=== PATIENT | female | born 1940 | race Caucasian/White ===

== ENCOUNTER 2018-09-30 12:54 | Inpatient (IN) | payer MEDICARE, OTHER ==
[~2018-09-30] VITALS: Ht 160 cm; Wt 46.0 kg
--- OUTSIDE RECORDS SUMMARY | ~2018-09-30 | XMS | Encounter Summary ---
Demographics + + + | Address | [address] | | | [place] [address] | + + + | Home Phone | | + + + | Preferred Language | Unknown | + + + | Marital Status | | + + + | Cheondoism Affiliation | 1013 | + + + | Race | Unknown | + + + | Ethnic Group | Unknown | + + + Author + + + | Author | [facility] | | | and [place] | + + + | Organization | [facility] | | | and [place] | + + + | Address | Unknown | + + + | Phone | Unavailable | + + + Support + + + + + | Name | Relationship | Address | Phone | + + + + + | Jesus Dumont | ECON | [address] | | | | | [place] | | | | | [address] | | + + + + + | Valentina Denton | ECON | [address] | | | | | [place] | | + + + + + | Jesus Dumont | NURIS | Unknown | | + + + + + Care Team Providers + +------+ + | Care Plate Shop Helper Name | Role | Phone | + +------+ + | Oscar Nevarez MD | PCP | | + +------+ + Reason for Visit +--------+ + | Reason | Comments | +--------+ + | Other | | +--------+ + Encounter Details +--------+ + + + + | Date | Type | Department | Care Team | Description | +--------+ + + + + | 09/01/ | Telephone | [facility] | Antwan Alegria | Other | | 2019 | | LABORATORY SERVICE | MD Isha, [facility] [address] | | | | | [address] | [facility] | | | | | [place], [place] | [place] [address] | | | | | [address] | [phone] | | | | | [phone] | | | +--------+ + + + + Social History + + + +--------+ + | Tobacco Use | Types | Packs/Day | Years | Date | | | | | Used | | + + + +--------+ + | Former Smoker | Cigarettes | 0.5 | 47 | Quit: 04/22/2004 | + + + +--------+ + + +---+---+---+ | Smokeless Tobacco: | | | | | Never Used | | | | + +---+---+---+ + + +---------+ + | Alcohol Use | Drinks/We | oz/Week | Comments | | | ek | | | + + +---------+ + | Yes | | | Seldom | + + +---------+ + + + + | Sex Assigned at | Date Recorded | | | | + + + | Not on file | | + + + + + + + | Job Start Date | Occupation | Industry | + + + + | Not on file | Not on file | Not on file | + + + + + + + + | Travel History | Travel Start | Travel End | + + + + + + | No recent travel history available. | + + documented as of this encounter Functional Status + + + + | Functional Status | Response | Date of Assessment | + + + + | Are you deaf or do you have serious | No | 08/20/2017 | | difficulty hearing? | | | + + + + documented as of this encounter Plan of Treatment Not on filedocumented as of this encounter Visit Diagnoses Not on filedocumented in this encounter"
--- OUTSIDE RECORDS SUMMARY | ~2018-09-30 | XMS | Clinical Summary ---
Demographics + + + | Address | [address] | | | [place] [address] | + + + | Home Phone | | + + + | Preferred Language | Unknown | + + + | Marital Status | | + + + | Hindu Affiliation | 1013 | + + + | Race | Unknown | + + + | Ethnic Group | Unknown | + + + Author + + + | Author | [facility] | | | and [place] | + + + | Organization | [facility] | | | and [place] [...] [place] | | | | | [address] | | + + + + + | Valentina Denton | ECON | [address] | | | | | [place] | | + + + + + | Jesus Dumont | NURIS | Unknown | | + + + + + Care Team Providers + +------+ + | Care Yarn Mercerizer Operator Name | Role | Phone | + +------+ + | Oscar Nevarez MD | PP | | + +------+ + Allergies No Known Allergies Medications + + + +---------+------+------+-------+ | Medication | Sig | Dispensed | Refills | Star | End | Statu | | | | | | t | Date | s | | | | | | Date | | | + + + +---------+------+------+-------+ | [place]-3 Fatty | Take 1,000 mg by | | 0 | 05/2 | | Activ | | Acids (OMEGA-3 FISH | mouth Daily. | | | 1/20 | | e | | OIL) 1000 MG CAPS | | | | 12 | | | + + + +---------+------+------+-------+ | omeprazole | Take 20 mg by mouth | | 0 | 08/0 | | Activ | | (PRILOSEC) 20 mg | 2 times daily | | | 4/20 | | e | | capsule | (before meals). | | | 13 | | | + + + +---------+------+------+-------+ | metoprolol | Take 50 mg by mouth | | 0 | 11/0 | | Activ | | succinate | nightly. | | | 2/20 | | e | | (TOPROL-XL) 50 mg 24 | | | | 15 | | | | hr tablet | | | | | | | + + + +---------+------+------+-------+ | | Take 25 mg by mouth | | 0 | 01/0 | | Activ | | hydroCHLOROthiazide | Daily. | | | 3/20 | | e | | 25 mg tablet | | | | 18 | | | + + + +---------+------+------+-------+ | lisinopril | Take 40 mg by mouth | | 0 | 01/0 | | Activ | | (PRINIVIL,ZESTRIL) | Daily. | | | 3/20 | | e | | 40 MG tablet | | | | 18 | | | + + + +---------+------+------+-------+ | loratadine | Take 10 mg by mouth | | 0 | | | Activ | | (CLARITIN) 10 mg | Daily. | | | | | e | | tablet | | | | | | | + + + +---------+------+------+-------+ | atorvaSTATin | Take 40 mg by mouth | | 0 | | | Activ | | (LIPITOR) 40 mg | nightly. | | | | | e | | tablet | | | | | | | + + + +---------+------+------+-------+ | felodipine | Take 10 mg by mouth | | 0 | 01/2 | | Activ | | (PLENDIL) 10 MG 24 | Daily. | | | 20 | | e | | hr tablet | | | | 18 | | | + + + +---------+------+------+-------+ | SYNTHROID 100 MCG | Take 100 mcg by | | 0 | 01/2 | | Activ | | tablet | mouth Daily. | | | /20 | | e | | | | | | 18 | | | + + + +---------+------+------+-------+ | metFORMIN | Take 500 mg by mouth | | 0 | 02/0 | | Activ | | (GLUCOPHAGE-XR) 500 | Daily. | | | 7/20 | | e | | mg 24 hr tablet | | | | 18 | | | + + + +---------+------+------+-------+ | ferrous sulfate | Take 160 mg by mouth | | 0 | | | Activ | | dried (SLOW IRON) | daily (with | | | | | e | | 160 mg ER tablet | breakfast). | | | | | | + + + +---------+------+------+-------+ | Ascorbic Acid | Take 125 mg by mouth | | 0 | | | Activ | | (VITAMIN C) 100 MG | 2 times daily. | | | | | e | | tablet | | | | | | | + + + +---------+------+------+-------+ | Calcium | Take 1,200 tablets | | 0 | | | Activ | | Carbonate-Vitamin D | by mouth Daily. | | | | | e | | (CALCIUM 600+D PO) | | | | | | | + + + +---------+------+------+-------+ | ticagrelor | Take 90 mg by mouth | | 0 | | | Activ | | (BRILINTA) 90 mg | 2 times daily. | | | | | e | | tablet | | | | | | | + + + +---------+------+------+-------+ | aspirin 81 MG | Take 81 mg by mouth | | 0 | | | Activ | | tablet | Daily. | | | | | e | + + + +---------+------+------+-------+ Active Problems + + + | Problem | Noted Date | + + + | CAROTID ENDARTECTOMY | 09/24/2011 | + + + | CAROTID ARTERY STENOSIS, BILATERAL | 08/10/2010 | + + + | HYPERLIPIDEMIA | | + + + | HYPERTENSION | | + + + | HYPOTHYROIDISM | | + + + | DIABETES, TYPE 2 | | + + + | CHEST PAIN | | + + + | CAD | | + + + Encounters +--------+ + + + + | Date | Type | Specialty | Care Team | Description | +--------+ + + + + | 09/01/ | Telephone | | Antwan Alegria | Other | | 2019 | | | MD [facility] | | +--------+ + + + + from Last 3 Months Immunizations + + + + | Name | Dates Previously Given | Next Due | + + + + | PNEUMOCOCCAL | 01/20/2017 | | | POLYSACCHARIDE | | | | 23-VALENT (PPSV23) | | | + + + + | TETANUS TOXOID | 01/20/2017 | | | ABSORBED, | | | | (ADOL/ADULT) | | | + + + + Family History + + +------+ + | Medical History | Relation | Name | Comments | + + +------+ + | Atrial fibrillation | Brother | | | + + +------+ + | Hypertension | Brother | | | + + +------+ + | Diabetes | Daughter | | | + + +------+ + | Arrhythmia | Maternal | | | | | Aunt | | | + + +------+ + | Atrial fibrillation | Mother | | | + + +------+ + | Parkinsonism | Mother | | | + + +------+ + | Hypertension | Sister | | | + + +------+ + + +------+ + + | Relation | Name | Status | Comments | + +------+ + + | Brother | | | | + +------+ + + | Daughter | | | | + +------+ + + | Father | | | | + +------+ + + | Maternal Aunt | | | | + +------+ + + | Mother | | | | + +------+ + + | Sister | | | | + +------+ + + Social History + + + [...] recent travel history available. | + + Last Filed Vital Signs + + + + | Vital Sign | Reading | Time Taken | + + + + | Blood Pressure | 146/68 | 09/23/20171046 PDT | + + + + | Pulse | 59 | 09/23/20171046 PDT | + + + + | Temperature | 36.6 C (97.8 F) | 09/23/20171046 PDT | + + + + | Respiratory Rate | 14 | 08/20/2017929 PDT | + + + + | Oxygen Saturation | 99% | 09/23/20171046 PDT | + + + + | Inhaled Oxygen | - | - | | Concentration | | | + + + + | Weight | 56.8 kg (125 lb 3.5 | 09/23/20171046 PDT | | | oz) | | + + + + | Height | 160 cm (5' 3") | 09/23/20171046 PDT | + + + + | Body Mass Index | 22.18 | 09/23/20171046 PDT | + + + + Plan of Treatment + + + + + | Health Maintenance | Due Date | Last Done | Comments | + + + + + | Diabetic Eye Exam | | | | | | 0 | | | + + + + + | Diabetic Foot Exam | | | | | | 0 | | | + + + + + | Vaccine: Zoster (1 | | | | | of 2) | 2 | | | + + + + + | Adult Annual | | | | | Wellness Visit | 5 | | | + + + + + | Hemoglobin A1c | | 03/10/2016 | | | Screening | 7 | | | + + + + + | Vaccine: | | 01/20/2017 | | | Dtap/Tdap/Td (1 - | 7 | | | | Tdap) | | | | + + + + + | Vaccine: | | 01/20/2017 | | | Pneumococcal 65+ | 8 | | | | Low/Medium Risk (2 | | | | | of 2 - PCV13) | | | | + + + + + | Vaccine: Influenza | | | | | (Season Ended) | 9 | | | + + + + + Implants + +-------+--------+ +--------+--------+--------+ | Implanted | Type | Area | Manufacture | Device | Shelf | Model | | | | | r | | Expira | / | | | | | | Identi | tion | Serial | | | | | | fier | Date | / Lot | + +-------+--------+ +--------+--------+--------+ | Visi Pro | Stent | Left: | | | 09/25/ | / | | Stent-08/19/2017Implanted: | | Caroti | | | 2020 | /[id number] | | Qty: 1 on 08/19/2017 by | | d | | | | 82 | | Jamar Slade MD | | | | | | | + +-------+--------+ +--------+--------+--------+ | Acculink | Stent | Left: | | | 04/22/ | / | | Stent-08/19/2017Implanted: | | Caroti | | | 2020 | /[id number] | | Qty: 1 on 08/19/2017 by | | d | | | | 61 | | Jamar Slade MD | | | | | | | + +-------+--------+ +--------+--------+--------+ Results Not on filefrom Last 3 Months Insurance + +--------+ +--------+ +---------+--------+ | Payer | Benefi | Subscriber | Effect | Phone | Address | Type | | | t Plan | ID | sloan | | | | | | / | | Dates | | | | | | Group | | | | | | + +--------+ +--------+ +---------+--------+ | MEDICARE | MEDICA | [id number] | 12/22/19 | [phone] | | Medica | | | RE | | 07-Pre | 5 | | re | | | PART A | | sent | | | | | | AND B | | | | | | + +--------+ +--------+ +---------+--------+ | AETNA | AETNA | [id number] | 04/22/19 | | | PPO | | | PPO | | 18-Pre | | | | | | | | sent | | | | + +--------+ +--------+ +---------+--------+ + +--------+ +--------+ + + | Guarantor Name | Accoun | Relation to | Date | Phone | Billing Address | | | t Type | Patient | of | | | | | | | | | | + +--------+ +--------+ + + | Gillian Dumont | Person | Self [birth year] | [address] | | | al/Fam | | 1940 | [phone] | [place] [address] | | | michelle | | | 5 (Home) | | + +--------+ +--------+ + + Advance Directives Patient has advance care planning documents, and code status on file. For more information, please contact:[facility] [place] [facility] [place] [address] + + + + + | Code Status | Date | Date | Comments | | | Activated | Inactivated | | + + + + + | Full Code | 08/20/2017 | 08/20/2017 | | | | 8:28 | 12:34 | | + + + + +
--- OUTSIDE RECORDS SUMMARY | ~2018-09-30 | XMS | Encounter Summary ---
Demographics + + + | Address | [address] | | | [place] [address] | + + + | Home Phone | | + + + | Preferred Language | Unknown | + + + | Marital Status | | + + + | Bahai Affiliation | Unknown | + + + | Race | Unknown | + + + | Ethnic Group | Unknown | + + + Author + + + | Author | [facility] | + + + | Organization | [facility] | + + + | Address | Unknown | + + + | Phone | Unavailable | + + + Support + + +---------+ + | Name | Relationship | Address | Phone | + + +---------+ + | Jesus Dumont | ECON | Unknown | | + + +---------+ + Care Team Providers + +------+ + | Care Wire Frame Maker Name | Role | Phone | + +------+ + | Oscar Nevarez MD | PCP | | + +------+ + Reason for Visit +--------+ + | Reason | Comments | +--------+ + | Other | STA ct/abdoment/pelvic ct/chest/thorax with contrast | +--------+ + Encounter Details +--------+ + + + + | Date | Type | Department | Care Team | Description | +--------+ + + + + | 08/29/ | Documentati | [facility] | Kat Castro, | Other ([facility] | | 2019 | on Only | [facility] | [place] | ct/abdoment/pelvic | | | | [address] | | ct/chest/thorax with | | | | [place] | | contrast ) | | | | [address] | | | | | | [phone] | | | +--------+ + + + + Social History + +-------+ +--------+ + | Tobacco Use | Types | Packs/Day | Years | Date | | | | | Used | | + +-------+ +--------+ + | Former Smoker | | 0.5 | 47 | Quit: 2002 | + +-------+ +--------+ + + +---+---+---+ | Smokeless Tobacco: | | | | | Never Used | | | | + +---+---+---+ + + +---------+ + | Alcohol Use | Drinks/We | oz/Week | Comments | | | ek | | | + + +---------+ + | Yes | | | seldom | + + +---------+ + + + + | Sex Assigned at | Date Recorded | | | | + + + | Not on file | | + + + as of this encounter Plan of Treatment Not on fileas of this encounter Visit Diagnoses Not on filein this encounter"
--- OUTSIDE RECORDS SUMMARY | ~2018-09-30 | XMS | Clinical Summary ---
Demographics + + + | Address | [address] | | | [place] [address] | + + + | Home Phone | | + + + | Preferred Language | Unknown | + + + | Marital Status | | + + + | Orthodox Affiliation | Unknown | + + + | Race | Unknown | + + + | Ethnic Group | Unknown | + + + Author + + + | Author | [facility] | + + + | Organization | [facility] | + + + | Address | Unknown | + + + | Phone | Unavailable | + + + Support + + +---------+ + | Name | Relationship | Address | Phone | + + +---------+ + | Jesus Dumont | ECON | Unknown | | + + +---------+ + Care Team Providers + +------+ + | Care Tube Coremaker Name | Role | Phone | + +------+ + | Oscar Nevarez MD | PP | | + +------+ + Allergies No Known Allergies Current Medications + + +--------+---------+------+------+-------+ | Prescription | Sig. | Disp. | Refills | Star | End | Statu | | | | | | t | Date | s | | | | | | Date | | | + + +--------+---------+------+------+-------+ | | Take 25 mg by mouth | | | 01/0 | | Activ | | hydrochlorothiazide | daily. | | | 3/20 | | e | | (HYDRODIURIL) 25 MG | | | | 18 | | | | tablet | | | | | | | + + +--------+---------+------+------+-------+ | omeprazole | Take 20 mg by mouth | | 3 | 10/0 | | Activ | | (PRILOSEC) 20 MG | daily. | | | 2/20 | | e | | capsule | | | | 17 | | | + + +--------+---------+------+------+-------+ | metoprolol | Take 50 mg by mouth | | | 11/0 | | Activ | | (TOPROL-XL) 50 MG 24 | daily. | | | 2/20 | | e | | hr tablet | | | | 15 | | | + + +--------+---------+------+------+-------+ | lisinopril | Take 40 mg by mouth | | | 01/0 | | Activ | | (ZESTRIL) 40 MG | daily. | | | 320 | | e | | tablet | | | | 18 | | | + + +--------+---------+------+------+-------+ | felodipine | Take 10 mg by mouth | | | 05/2 | | Activ | | (PLENDIL) 5 MG 24 hr | daily. | | | 20 | | e | | tablet | | | | 12 | | | + + +--------+---------+------+------+-------+ | levothyroxine | Take 100 mcg by | | | | | Activ | | (SYNTHROID) 100 MCG | mouth every morning | | | | | e | | tablet | before breakfast. | | | | | | + + +--------+---------+------+------+-------+ | loratadine | Take 10 mg by mouth | | | | | Activ | | (CLARITIN) 10 MG | daily. | | | | | e | | tablet | | | | | | | + + +--------+---------+------+------+-------+ | [place]-3 Fatty | Take 1,000 mg by | | | 05/2 | | Activ | | Acids (OMEGA-3 FISH | mouth daily. | | | 1/20 | | e | | OIL) 1000 MG CAPS | | | | 12 | | | + + +--------+---------+------+------+-------+ | metFORMIN | Take 500 mg by mouth | | | 05/2 | | Activ | | (GLUCOPHAGE) 500 MG | daily. | | | 1/20 | | e | | tablet | | | | 12 | | | + + +--------+---------+------+------+-------+ | aspirin 81 MG EC | Take 81 mg by mouth | | | | | Activ | | tablet | daily with | | | | | e | | | breakfast. | | | | | | + + +--------+---------+------+------+-------+ | atorvastatin | Take 1 tablet by | 30 | 11 | 01/0 | | Activ | | (LIPITOR) 40 MG | mouth nightly. | tablet | | 9/20 | | e | | tablet | | | | 18 | | | + + +--------+---------+------+------+-------+ Active Problems + + + | Problem | Noted Date | + + + | Carotid stenosis, bilateral | | + + + | Hyperlipidemia | | + + + | Hypertension | | + + + Encounters +--------+ + + + + | Date | Type | Specialty | Care Team | Description | +--------+ + + + + | 08/29/ | Documentati | | Kat Castro, | Other ([facility] | | 2018 | on Only | | [place] | ct/abdoment/pelvic | | | | | | ct/chest/thorax with | | | | | | contrast ) | +--------+ + + + + from Last 3 Months Family History + + +------+ + | Medical History | Relation | Name | Comments | + + +------+ + | Atrial fibrillation | Brother | | | + + +------+ + | Hypertension | Brother | | | + + +------+ + | Diabetes type II | Daughter | | | + + +------+ + | Arrhythmia | Maternal | | | | | Aunt | | | + + +------+ + | Atrial fibrillation | Mother | | | + + +------+ + | Parkinson's disease | Mother | | | + + +------+ + | Hypertension | Sister | | | + + +------+ + + +------+ + + | Relation | Name | Status | Comments | + +------+ + + | Brother | | Alive | | + +------+ + + | Daughter | | Alive | | + +------+ + + | Father | | | accident | | | | (Age | | | | | 35) | | + +------+ + + | Maternal Aunt | | | | + +------+ + + | Mother | | | | | | | (Age | | | | | 91) | | + +------+ + + | Sister | | Alive | | + +------+ + + Social History + +-------+ +--------+ [...] on file | | + + + Last Filed Vital Signs + + + + | Vital Sign | Reading | Time Taken | + + + + | Blood Pressure | 128/54 | 04/30/2017 1:28 PM PST | + + + + | Pulse | 65 | 04/30/2017 1:14 PM PST | + + + + | Temperature | - | - | + + + + | Respiratory Rate | - | - | + + + + | Oxygen Saturation | 100% | 04/30/2017 1:14 PM PST | + + + + | Inhaled Oxygen | - | - | | Concentration | | | + + + + | Weight | 59.6 kg (131 lb 8 | 04/30/2017 1:14 PM PST | | | oz) | | + + + + | Height | 158.8 cm (5' 2.5") | 04/30/2017 1:14 PM PST | + + + + | Body Mass Index | 23.67 | 04/30/2017 1:14 PM PST | + + + + Plan of Treatment + + + + + | Health Maintenance | Due Date | Last Done | Comments | + + + + + | Vaccine: | | | | | Dtap/Tdap/Td (1 - | 1 | | | | Tdap) | | | | + + + + + | Vaccine: Zoster (1 | | | | | of 2) | 2 | | | + + + + + | DEXA SCAN SCREENING | | | | | | 7 | | | + + + + + | Vaccine: | | | | | Pneumococcal 65+ | 7 | | | | Low/Medium Risk (1 | | | | | of 2 - PCV13) | | | | + + + + + | Vaccine: Influenza | | | | | (Season Ended) | 9 | | | + + + + + Results Not on filefrom Last 3 Months Insurance + +--------+ +------+-------+ + | Payer | Benefi | Subscriber | Type | Phone | Address | | | t Plan | ID | | | | | | / | | | | | | | Group | | | | | + +--------+ +------+-------+ + | MEDICARE | MEDICA | [id number] | | | [address] | | | [place] | | | | [place] [address] | | | IP-OP | | | | | + +--------+ +------+-------+ + | AETNA | AETNA | [id number] | | | | | | - [place] | | | | | | | [place] | | | | | | | [place] | | | | | + +--------+ +------+-------+ + + +--------+ +--------+ + + | Guarantor Name | Accoun | Relation to | Date | Phone | Billing Address | | | t Type | Patient | of | | | | | | | | | | + +--------+ +--------+ + + | MARTIN DUMONT | Person | Self [birth year] Home: | [address] | | | al/Fam | | 1940 | [phone] [place] [address] | | | michelle | | | 1813 | | + +--------+ +--------+ + +
--- OUTSIDE RECORDS SUMMARY | ~2018-09-30 | XMS | Encounter Summary ---
Demographics + + + | Address | [address] | | | [place] [address] | + + + | Home Phone | | + + + | Preferred Language | Unknown | + + + | Marital Status | | + + + | Yazidi Affiliation | 1013 | + + + | Race | Unknown | + + + | Ethnic Group | Unknown | + + + Author + + + | Author | [facility] | | | and [place] | + + + | Organization | [facility] | | | and [place] [...] [place] | | | | | [address] | | + + + + + | Valentina Denton | ECON | [address] | | | | | [place] | | + + + + + | Jesus Dumont | NURIS | Unknown | | + + + + + Care Team Providers + +------+ + | Care Glaze Supervisor Name | Role | Phone | + [...] + + | 09/01/ | Telephone | [facility] | Antwan Alegria | Other | | 2019 | | LABORATORY SERVICE | MD Isha, [facility] [address] | | | | | [address] | [facility] | | | | | [place], [place] | [place] [address] | | | | | [address] | [phone] | | | | | [phone] | | | +--------+ + + + [...]
--- OUTSIDE RECORDS SUMMARY | ~2018-09-30 | XMS | Clinical Summary ---
Demographics + + + | Address | [address] | | | [place] [address] | + + + | Home Phone | | + + + | Preferred Language | Unknown | + + + | Marital Status | | + + + | Rastafari Affiliation | 1013 | + + + | Race | Unknown | + + + | Ethnic Group | Unknown | + + + Author + + + | Author | [facility] | | | and [place] | + + + | Organization | [facility] | | | and [place] [...] [place] | | | | | [address] | | + + + + + | Valentina Denton | ECON | [address] | | | | | [place] | | + + + + + | Jesus Dumont | NURIS | Unknown | | + + + + + Care Team Providers + +------+ + | Care Corrections Counselor Name | Role | Phone | + [...] | | + + + +---------+------+------+-------+ | [place]-3 Fatty | Take 1,000 mg by | [...] | [place] | | | 2020 | /[id number] | | Qty: 1 on 08/19/2017 by [...] +--------+ +---------+--------+ | MEDICARE | MEDICA | [id number] | 12/22/19 | [phone] | | Medica | | | RE | | 07-Pre | 5 | | re | | | PART A | | sent | | | | | | AND B | | | | | | + +--------+ +--------+ +---------+--------+ | AETNA | AETNA | [id number] | 04/22/19 | | | PPO | [...] | 1940 | [phone] | [place] [address] | | | michelle | | | 5 (Home) | | + +--------+ +--------+ + + Advance Directives Patient has advance care planning documents, and code status on file. For more information, please contact:[facility] [place] [facility] [place] [address] + + + + + | Code Status | Date | Date | Comments | | | Activated | Inactivated | | + + + + + | Full Code | 08/20/2017 | 08/20/2017 | | | | 8:28 | 12:34 | | + + + + +
--- OUTSIDE RECORDS SUMMARY | ~2018-09-30 | XMS | Clinical Summary ---
Demographics + + + | Address | [address] | | | [place] [address] | + + + | Home Phone | | + + + | Preferred Language | Unknown | + + + | Marital Status | | + + + | Congregation Affiliation | Unknown | + + + | Race | Unknown | + + + | Ethnic Group | Unknown | + + + Author + + + | Author | [facility] | + + + | Organization | [facility] | + + + | Address | Unknown | + + + | Phone | Unavailable | + + + Support + + +---------+ + | Name | Relationship | Address | Phone | + + +---------+ + | Jesus Dumont | ECON | Unknown | | + + +---------+ + Care Team Providers + +------+ + | Care Firestopper Technician Name | Role | Phone | + [...] | | | + + +--------+---------+------+------+-------+ | [place]-3 Fatty | Take 1,000 mg by | [...] +------+-------+ + | MEDICARE | MEDICA | [id number] | | | [address] | | | RE | | | | [place] [address] | | | IP-OP | | | | | + +--------+ +------+-------+ + | AETNA | AETNA | [id number] | | | | | | - [...] | 1940 | [phone] [place] [address] | | | michelle | | | [phone] | | + +--------+ +--------+ + +
--- OUTSIDE RECORDS SUMMARY | ~2018-09-30 | XMS | Encounter Summary ---
Demographics + + + | Address | [address] | | | [place] [address] | + + + | Home Phone | | + + + | Preferred Language | Unknown | + + + | Marital Status | | + + + | Adventism Affiliation | Unknown | + + + | Race | Unknown | + + + | Ethnic Group | Unknown | + + + Author + + + | Author | [facility] | + + + | Organization | [facility] | + + + | Address | Unknown | + + + | Phone | Unavailable | + + + Support + + +---------+ + | Name | Relationship | Address | Phone | + + +---------+ + | Jesus Dumont | ECON | Unknown | | + + +---------+ + Care Team Providers + +------+ + | Care Pocket Closer Name | Role | Phone | + [...] + | 08/29/ | Documentati | TERES[facility] Pratt | Kat Castro, | Other (STA | | 2019 | on Only | Cardiology [facility] | [place] | ct/abdoment/pelvic | | | | [address] | | ct/chest/thorax with | | | | [place] | | contrast ) | | | | [address] | | | | | | [phone] | | | +--------+ + + + [...]
[~2018-09-30 12:54] MED LIST: ASPIR-LOW81 MG PO; CALCIUM 500 +1 EAC2 PO; FELODIPINE ER10 MG PO; FERROUS SULFAT325 MG PO; LIPITOR10 MG PO; LOSARTAN-HCTZ1 EAC2 PO; LOSARTAN-HCTZ1 EACH PO; METFORMIN HCL500 M1 PO; METOPROLOL SUCC50 MG PO; OMEGA 3 FISH O1 EACH PO; OMEPRAZOLE20 MG PO; RANITIDINE HCL150 MG PO; SYNTHROID88 MCG PO; VITAMIN D31000 UNIT PO
--- NOTE | 2018-09-30 18:44 | NUR ---
SIMON CATH PLACED. GREAT RETURN OF URINE UPON INSERTION. IVF STARTED AT 100 ML/HR. PT'S DAUGHTER REMAINS IN ROOM AND HELPFUL. PATIENT HAS A LOOSE COUGH, BUT ONLY COUGHS WITH A WEAK EFFORT.
--- NOTE | 2018-09-30 19:15 | NUR ---
PATIENT ARRIVED TO CCU ROOM 129 AROUND 1730 VIA STRETCHER. PATIENT HELPED OVER TO CCU BED. PATIENT FOUND TO BE TACHYCARDIC, AND TACHYPNEIC UPON ARRIVAL. FEVER OF 100.[address] ALONZO AWARE. LABS DRAWN FROM NEW IV SITE PLACED IN LEFT FOREARM INCLUDING BLOOD CULTURES. INFORMATION GATHERED FROM PATIENT'S AND HER DAUGHTER. SIMON PLACED WIHTOUT DIFFICULTY. DR. ALONZO UPDATED ON PATIENT'S PAIN AND HER URINE OUTPUT, WELL HER MAG LEVEL OF 1.6. REPORT TO CHAIN CARRIER.
--- NOTE | 2018-09-30 19:30 | NUR ---
SHIFT REPORT RECEIVED FROM LO ROQUE. PT'S AND DAUGHTER AT BEDSIDE, ARE LEAVING SOON TO GET DINNER. PT BOOSTED UP IN BED. IV SITES APPEAR WNL. SIMON DRAINING FREELY. CALL LIGHT WITHIN REACH.
--- NOTE | 2018-09-30 20:00 | NUR ---
ASSESSMENT COMPLETED. PT REPORTS 8/10 PAIN IN RIGHT RIBS DOWN TO RIGHT HIP, PRN TYLENOL PROVIDED. PT DENIES SOB AND CHEST PAIN, HOWEVER, ON 3L O2 SPO2 DESATURATED TO 83-85%. SWITCHED TO OXYMASK AND INCREASED OXYGEN TO 6L FOR ABOUT 5 MINUTES, SPO2 INCREASED TO 95% AND WAS ABLE TO TITRATE BACK TO 4L NC. PT STATED THAT THE OXYMASK MADE HER FEEL CLAUSTROPHOBIC. LUNGS SOUND COARSE AND DIM ON THE RIGHT SIDE, CLEAR AND DIM ON THE LEFT. TACHYPNIC, RR:25-30. TACHYCARDIC: HR:110'S. SIMON INTACT, DRAINING FREELY, URINE SLIGHTLY CONCENTRATED IN APPEARANCE. IV SITES PATENT, IVF INFUSING WNL. PT IS VERY WEAK, CMS INTACT, NO EDEMA NOTED. NO FURTHER REQUESTS AT THIS TIME, CALL LIGHT WITHIN REACH.
--- NOTE | 2018-09-30 20:22 | NUR ---
R.T. IN TO ASSESS PT, ADD HUMIDIFICATION TO OXYGEN, AND INSTRUCT I.S.
--- NOTE | 2018-09-30 20:57 | NUR ---
SPO2 DESATURATED TO 85%, TIRATED OXYGEN UP TO 6L OXYMASK AND SPO2 CURRENTLY 90%. PT RESTING COMFORTABLY, DENIES SOB AND CHEST PAIN.
--- NOTE | 2018-09-30 21:05 | EKG ---
[facility] [address] [facility] [place] [address] Signed Sinus tachycardia Incomplete right bundle branch block Borderline ECG No previous ECGs available Confirmed by DAVE ALONZO MD ([id number]) on 09/30/2018 9:04:57 PM Electronically Signed By: DAVE ALONZO MD 09/30/18 2105 PATIENT NAME: MARTIN HANNA Electrocardiogram DATE OF : 44 PHYSICIAN: DAVE ALONZO MD REPORT #: [id number] REPORT IS CONFIDENTIAL AND NOT TO BE RELEASED WITHOUT AUTHORIZATION
--- NOTE | 2018-09-30 21:21 | NUR ---
PT COMPLAINING OF OXYMASK, SWITICHED BACK TO NASAL CANNULA AT 4L/MIN. SPO2: 91%.
--- NOTE | 2018-09-30 22:33 | NUR ---
PT RESTING WITH EYES CLOSED, DOES NOT APPEAR TO BE IN ANY DISTRESS. RESPIRATIONS EVEN AND UNLABORED, RR:21, HR:95. WILL ALLOW FOR REST AND CONTINUE TO MONITOR.
--- NOTE | 2018-09-30 22:51 | NUR ---
PT HEARD GROANING FROM NURSES' STATION. PT STATES THAT HER BACK IS HURTING HER, BOOSTED HER UP IN BED AND REPOSITIONED, PT STATES THAT SHE FEELS MORE COMFORTABLE. ORAL TEMP: 98.4.
--- NOTE | 2018-09-30 23:58 | NUR ---
ASSESSMENT COMPLETED. PT CONTINUES TO HAVE 8/10 PAIN IN RIGHT RIBS AND HIP, REPOSITIONED WITH PILLOW SUPPORT UNDER RIGHT SIDE, PT STATES THAT IT HELPS. LUNGS REMAIN DIM ON THE RIGHT SIDE AND IN THE BASES, 5L O2 VIA NC WITH HUMIDITY. TACHYPNEA IMPROVED RR NOW 20-24. TACHYCARDIA IMPROVED, HR NOW 90'S. SIMON PATENT. IV SITES WNL, IVF INFUSING WNL. PT DENIES FURTHER REQUESTS AT THIS TIME, CALL LIGHT WITHIN REACH.
--- NOTE | 2018-10-01 00:09 | NUR ---
TITRATED OXYGEN TO 4L NC FOR SPO2 97%.
--- NOTE | 2018-10-01 02:28 | NUR ---
PT AWOKE WHILE I WAS IN ROOM TO START ZOSYN INFUSION. PT CONTINUES TO REPORT 8/10 PAIN IN RIGHT HIP/RIBS AND PT STATES "ESPECIALLY WHEN I COUGH." PRN TYLENOL PROVIDED AT THIS TIME.
--- NOTE | 2018-10-01 04:08 | NUR ---
ASSESSMENT COMPLETED, PT REPORTS THAT HER PAIN IN RIGHT HIP/RIBS HAS IMPROVED TO 6/10 FROM 8/10 SINCE RECEIVING TYLENOL. NO OTHER CHANGES FROM PREVIOUS ASSESSMENTS. NO FURTHER REQUESTS AT THIS TIME, CALL LIGHT REMAINS WITHIN REACH.
--- NOTE | 2018-10-01 06:11 | NUR ---
PT RESTING WITH EYES CLOSED, DOES NOT APPEAR TO BE IN ANY DISTRESS. RESPIRATIONS EVEN AND UNLABORED, RR:14, SPO2: 97% ON 4L NC. HR: 97. WILL ALLOW FOR REST AND CONTINUE TO MONITOR.
--- NOTE | 2018-10-01 07:48 | NUR ---
PATIENT AWAKE AND RESTING IN BED UPON INITIAL ASSESSMENT. PATIENT STATES SHE FEELS A LITTLE BETTER THAN YESTERDAY, BUT STILL NOT FEELING THAT WELL. URINE OUTPUT HAS BEEN GOOD THROUGH THE NIGHT AND STILL DRAINING CLEAR YELLOW URINE. PT ON 3-4 L OF OXYGEN. PT STILL HAS A VERY WEAK COUGH, WITH SOME LOOSE SOUNDING SPUTUM NOTED. PT VERY DIMINSHED ON RIGHT SIDE OF LUNGS. PT ALSO VERY WEAK OVERALL. AM CARE PROVIDED INCLUDING A HOT WASH CLOTH AND TEETH BRUSHING. PT STILL AN 8/10. PLAN IS FOR DR. ALCARAZ TO PERFORM A THROACENTESIS THIS AM. DR. ALONZO IN ROOM TO SEE PATIENT. MYA FROM [facility] ALSO IN ROOM TO EVAL PATIENT. NO FAMILY IN ROOM AT THIS TIME.
--- NOTE | 2018-10-01 08:00 | NUR ---
SPOKE WITH PATIENT IN ROOM. DR ALONZO AND STAFF NURSE ALSO THERE. PATIENT LIVES WITH , HAS BEEN CHRONICALLY ILL FOR SEVERAL MONTHS. STATES SHE HAS A CANE, ONLY DME. PATIENT WISHES TO RETURN HOME AT DISCHARGE. STATES THERE ARE TWO STEPS WITH RAIL TO GET IN, DOES NOT NEED TO GO INTO BASEMENT. PATIENT IS OBVIOUSLY UNCOMFORTABLE, SO WILL LET HER REST AND WILL CONTINUE TO FOLLOW PROGRESS.
--- NOTE | 2018-10-01 11:33 | NUR ---
DR. ALCARAZ HERE TO SEE PATIENT. U/S TECH ALSO HERE TO DO BEDSIDE U/S OF CHEST. PLEURAL EFFUSION FOUND TO BE LOCULATED THEREFORE NO THORACENTESIS WAS PERFORMED. DR. ALONZO UPDATED BY DR. ALCAARZ ABOUT FINDINGS. PATIENT HELPED TO MOVE TO CHAIR WITH A 2 PERSON STANDBY ASSIST. PATIENT GIVEN BED BATH AND SHAMPOO CAP, AND NEW GOWN. PT'S FAMILY AND DAUGHTER UPDATED BY DR. ALCARAZ. PATIENT CONTINUES TO NEED 3 L OF OXYGEN TO KEEP SP02 >90%. PATIENT POTENTIALLY WILL BE TRANSFERRED TO ANOTHER HOSPITAL WITH A THORACIC SURGEON CONSULT. CONTINUE TO MONITOR.
[2018-10-01] MEDS ORDERED: LEVOTHYROXINE75 MCG PO (12:18)
[2018-10-01] MEDS ORDERED: METOPROLOL SUC100 MG PO (12:19)
[2018-10-01] MEDS ORDERED: CANDESARTAN CIL32 MG PO (12:19)
[2018-10-01] MEDS ORDERED: OMEPRAZOLE40 MG PO (12:20)
[2018-10-01] MEDS ORDERED: ROSUVASTATIN CA20 MG PO (12:20)
[2018-10-01] MEDS ORDERED: HYDROCHLOROTHIA25 MG PO (12:21)
[2018-10-01] MEDS ORDERED: SLOW RELEASE I160 MG PO (12:41)
[2018-10-01] MEDS ORDERED: VITAMIN C250 MG PO (12:41)
[2018-10-01] MEDS ORDERED: MULTI VITAMIN1 EACH PO (12:43)
[2018-10-01] MEDS ORDERED: CLARITIN10 M2 PO (12:43)
--- NOTE | 2018-10-01 12:44 | NUR ---
Medications reconciled using pharmacy records, Dr Nevarez's latest chart notes and patient interview. Many changes made from original intake med rec report
--- NOTE | 2018-10-01 13:36 | NUR ---
1 UNIT OF PACKED RED BLOOD CELLS STARTED AT 1325. PATIENT HELPED BACK TO BED PER HER REQUEST. PATIENT WAS A 1 PERSON TRANSFER THIS TIME AND HAD SUPRISINGLY MORE STRENGTH THAN ANTICIPATED. PATIENT'S FAMILY REMAINS IN ROOM.
--- NOTE | 2018-10-01 15:05 | NUR ---
PATIENT TO BE TRANSFERRED TO [facility] VIA AMBULANCE, NON EMERGENT TRANSPORTATION. PATIENT'S FAMILY IN ROOM AND AWARE OF TRANSFER. PATIENT'S BLOOD IS JUST FINISHING AT THIS TIME.
--- NOTE | 2018-10-01 15:18 | NUR ---
[facility] HERE TO TRANSFER PATIENT TO [facility].
--- NOTE | 2018-10-01 15:37 | NUR ---
PATIENT TRANSFERRED TO [facility] AT 1530. PATIENT ABLE TO STAND TO PIVOT ONTO STRETCHER. BLOOD INFUSED AND DONE. REPORT TO BE CALLED TO [facility] RN.
--- NOTE | 2018-10-01 16:36 | CONS ---
[facility] [address] [place] [place], [place] [address] Signed DATE OF CONSULTATION: 10/01/2018 CHIEF COMPLAINT: Right-sided chest pain. HISTORY OF PRESENT ILLNESS: Martin is a 78-year-old elderly, cachectic, debilitated lady. She has had several falls actually over the last year or so. Most recently, she fell in the shower and before that, she [place]. It sounds like she injured the right side of her chest. She has been having trouble then with anorexia, early satiety and weight loss in the last six to seven months. She had been getting too weak to walk and so her family finally brought her into the emergency room for evaluation. She smoked up to about 2007 and has quit, although she certainly has had carotid artery surgery and stenting along with peripheral arterial disease. In the emergency room, she had a CT scan of her head, which was fine, but the chest x-ray showed a probably a moderate-sized right pleural effusion. Probably an infiltrate in that right lower lobe. Her white count was elevated and she has been admitted to the Internal Medicine Service and started on IV antibiotics. In the meantime, I was asked to see her as a local general surgeon on-call. PAST MEDICAL HISTORY: Osteoarthritis of the shoulders, hypertension, hypothyroidism, diabetes, peripheral arterial disease and colonic polyps. PAST SURGICAL HISTORY: Carotid artery surgery and stenting x3, tonsillectomy, adenoidectomy, several colonoscopies. SOCIAL HISTORY: She quit smoking in 2007. She does not drink. She is to her . Dr. Oscar Nevarez is her primary care provider and they prefer the [facility]. FAMILY HISTORY: None. REVIEW OF SYSTEMS: She had 10 systems reviewed and this was unremarkable other than history of present illness. ALLERGIES: Lisinopril. MEDICATIONS: Electronically Signed By: ARIANA ALCARAZ MD 10/01/18 5386 PATIENT NAME: MARTIN HANNA CONSULTATION DATE OF : 44 REPORT #: [id number] PHYSICIAN: ARIANA ALCARAZ MD PCP: OSCAR NEVAREZ MD REPORT IS CONFIDENTIAL AND NOT TO BE RELEASED WITHOUT AUTHORIZATION [facility] [address] [place], [place] [address] Signed Losartan, hydrochlorothiazide, atorvastatin, Zantac, iron, levothyroxine, metformin, Felodipine, metoprolol, calcium, vitamin D, fish oil, and aspirin. PHYSICAL EXAMINATION: VITAL SIGNS: Her blood pressure is 141/66, her heart rate is 87, respiratory rate 18. After she is 98% on room air. She is 5 feet 3 inches, at 46 kg exam. GENERAL: Martin is a 78-year-old female lying supine in her hospital bed. Her and daughter at the bedside along with her nurse, Fabi. She is obviously elderly and cachectic. She has no increased work of breathing or shortness of breath. She can talk in full sentences. Her heart is regular rate and rhythm and she has clear breath sounds on the left. The decreased breath sounds on the right, even anteriorly. LABORATORY DATA: Her white blood count 22, with NV with neutrophils of 778 and hemoglobin 8.1. Sodium is down low at 130, BUN 12, creatinine 0.4. Liver function tests were fine. Albumin is 2.6. Her CA-125 level was normal at 16. Sedimentation rate high at 110. Lactic acid normal 1.1. Urinalysis negative. Her pre-albumin is low at less than 3. An INR is 1.1. Blood cultures have been sent and pending. RADIOGRAPHIC STUDIES: Right chest x-ray is reviewed and she clearly has a right pleural effusion, probably moderate in size with some infiltrate and increased markings in that right lower lobe. CT scan of the head was unremarkable. We had the information technology teacher come down why I was here and we looked at that right pleural effusion. It is clearly loculated, has a rind around it, several loculations inside with internal echoes in every compartment. It has obviously been there for some time. ASSESSMENT AND PLAN: Martin is a 78-year-old female who presents with a loculated right pleural effusion with probable pneumonia following a fall earlier about 30-45 days ago. I explained to Martin and her family that a simple thoracentesis will not suffice to drain that fluid. She will need a thoracoscopy with possible thoracotomy done by our thoracic surgeons. I have reviewed this with Dr. Luke as well. She will be making those arrangements. Ariana Alcaraz MD ALB/MODL /[id number] Electronically Signed By: ARIANA ALCAARZ MD 10/01/18 1636 PATIENT NAME: MARTIN HANNA CONSULTATION DATE OF : 44 REPORT #: [id number] PHYSICIAN: ARIANA ALCARAZ MD PCP: OSCAR NEVAREZ MD REPORT IS CONFIDENTIAL AND NOT TO BE RELEASED WITHOUT AUTHORIZATION [facility] [address] [place], [place] [address] Signed cc: MD Ariana Kennedy MD Copies: OSCAR NEVAREZ MD, ANDREW L MD ~ Electronically Signed By: ARIANA ALCARAZ MD 10/01/18 1636 PATIENT NAME: MARTIN HANNA CONSULTATION DATE OF : 44 REPORT #: [id number] PHYSICIAN: ARIANA ALCARAZ MD PCP: OSCAR NEVAREZ MD REPORT IS CONFIDENTIAL AND NOT TO BE RELEASED WITHOUT AUTHORIZATION
== END 2018-10-01 15:30 | disposition short-term general hospital (02) | DRG 193 ==
LOC: ED 12:54 → CCU 17:07
PROVIDERS: ADMIT Internal Medicine
PROC: 30233N1 Transfusion of Nonautologous Red Blood Cells into Peripheral Vein, Percutaneous Approach (ICD-10-PCS; principal; 2018-10-01)
DX: J13 Pneumonia due to Streptococcus pneumoniae (principal); E43 Unspecified severe protein-calorie malnutrition; J91.8 Pleural effusion in other conditions classified elsewhere; Z68.1 Body mass index [BMI] 19.9 or less, adult; R29.810 Facial weakness; E03.9 Hypothyroidism, unspecified; E11.51 Type 2 diabetes mellitus with diabetic peripheral angiopathy without gangrene; D64.89 Other specified anemias; Z88.8 Allergy status to other drugs, medicaments and biological substances; Z87.891 Personal history of nicotine dependence; Z79.82 Long term (current) use of aspirin; Z79.899 Other long term (current) drug therapy; Z79.84 Long term (current) use of oral hypoglycemic drugs
CPT/HCPCS: 36415; 36430; 36600; 51702; 70450; 71045; 76604; 80053; 81001; 82607; 82746; 82803; 83605; 83690; 83735; 84100; 84134; 84439; 84443; 84484; 85025; 85610; 85651; 86304; 86850; 86900; 86901; 86920; 93005; 93010; 96360; 99285-25; C9113; J2543; J3475; J3480; J7030; J7060; P9016